=== PATIENT | female | born 1975 | race Caucasian/White ===

== ENCOUNTER → 2019-04-13 | Outpatient (REF) | payer OTHER | LOC: M LAB LCGH 15:09 | PROVIDERS: ATTEND Obstetrics & Gynecology | DX: Z34.90 Encounter for supervision of normal pregnancy, unspecified, unspecified trimester (principal); O20.0 Threatened abortion ==

== ENCOUNTER → 2020-01-27 | Outpatient (CLI) | payer OTHER ==
[2020-01-27 18:50] LABS: C REACTIVE PROTEIN QUANTITATIV < 0.30 MG/DL (0.00-0.30); RHEUMATOID FACTOR QUANT < 10.0 IU/ML (<15.0)
[2020-01-30 08:10] LABS: CYCLIC CITRULLINATED PEPTIDE 11 units (0-19); HEPATITIS B CORE ANTIBODY IGG Negative (Negative); HEPATITIS BE ANTIGEN Negative (Negative)
== END ==
LOC: M PLALAB 15:38
PROVIDERS: ATTEND Internal Medicine
DX: M25.50 Pain in unspecified joint (principal)